=== PATIENT | male | born 1965 | race Caucasian/White ===

== ENCOUNTER → 2020-09-09 | Day surgery (SDC) | payer OTHER ==
[~2020-09-09] VITALS: Ht 182.9 cm; Wt 94.3 kg
[~2020-09-09] MED LIST: AMARYL4 MG PO; ASPIRIN CHEWABL81 MG PO; ASPIRIN81 MG PO; CHROMIUM PIC1000 MCG PO; DAILY VALUE1 EACH PO; FLEXERIL10 MG PO; LOVAZA1 GM PO; MEDROL 4MG DOSEP4 MG PO; METFORMIN HCL500 MG PO; NORCO 5-325 TA1 EACH PO; OFLOXACIN5 M1 AD; ONDANSETRON ODT8 MG PO; STEGLATRO15 MG PO; ZOCOR40 MG PO
[2020-09-09 08:34] LABS: HCT 46.2 % (42.0-52.0); HGB 15.1 g/dl (13.2-18.0); MCH 28.5 pg (25.0-31.0); MCHC 32.7 g/dL (32.0-36.0); MCV 87.3 fL (78.0-100.0); MPV 8.8 fL (6.0-9.5); RBC 5.29 M/uL (4.70-6.00); RDW 12.7 % (11.5-14.0); WBC 7.6 K/uL (4.0-10.5)
[2020-09-09 09:01] LABS: ALBUMIN 3.8 g/dL (3.4-5.0); BILIRUBIN - TOTAL 0.7 mg/dL (0.2-1.0); BUN/CREAT RATIO (CALC) 12.6 RATIO; CREATININE 0.87 mg/dL (0.67-1.17); GLOBULIN (CALCULATION) 3.3 g/dL; POTASSIUM 4.1 mmol/L (3.5-5.1); TOTAL PROTEIN 7.1 g/dL (6.4-8.2)
== END | disposition home or self-care (01) ==
LOC: FAS 07:55
PROVIDERS: Surgery
DX: K81.1 Chronic cholecystitis (principal); K82.8 Other specified diseases of gallbladder; K21.9 Gastro-esophageal reflux disease without esophagitis; E11.9 Type 2 diabetes mellitus without complications; Z79.84 Long term (current) use of oral hypoglycemic drugs; Z88.0 Allergy status to penicillin; Z90.89 Acquired absence of other organs
CPT/HCPCS: 36415; 74300; 80053; C1758; J1100; J1170; J2250; J2405; J2704; J2710; J3010; J7120; Q9967

== ENCOUNTER 2021-07-12 06:59 | Emergency (ER) | payer OTHER ==
[2021-07-12] MEDS ORDERED: VIBRAMYCIN100 MG PO (07:40)
== END 2021-07-12 07:44 | disposition home or self-care (01) ==
LOC: FER 06:59
DX: L03.115 Cellulitis of right lower limb (principal); I10 Essential (primary) hypertension; E11.9 Type 2 diabetes mellitus without complications; Z88.0 Allergy status to penicillin; Z79.84 Long term (current) use of oral hypoglycemic drugs; Z28.310 Unvaccinated for COVID-19
CPT/HCPCS: 99282